=== PATIENT | male | born 1975 | race Caucasian/White ===

== ENCOUNTER → 2023-12-22 | Outpatient (CLI) | payer MEDICARE, SELFPAY ==
--- NOTE | 2023-12-22 12:23 | MRI_ITS ---
STUDY: MRI LEFT SHOULDER REASON FOR EXAM: Male, 48 years old. Pain after a fall lt shoulder TECHNIQUE: Standardized fat and water weighted pulse sequences were obtained in all 3 orthogonal planes. COMPARISON: X-ray November 23, 2023 FINDINGS: Normal supraspinatus tendon. Normal infraspinatus tendon. Normal subscapularis tendon. Normal teres minor tendon. Normal supraspinatus muscle. Normal infraspinatus muscle. Normal subscapularis muscle. Normal teres minor muscle. Normal glenohumeral articulation. Normal humeral head and visualized proximal humerus. Normal biceps labral complex. Normal intracapsular long biceps tendon. There is tear of the superior labrum adjacent to the biceps anchor, series 5 images 11 through 13. Normal capsulo- ligamentous complex. Normal rotator interval. There is mild edema at the acromioclavicular articulation. There is a Type II morphology (curved) acromion, with a neutral orientation. There is no subacromial-subdeltoid bursal fluid. Normal visualized coracohumeral and coracoacromial ligaments. Normal quadrilateral space. Normal axillary space. Normal deltoid muscle. Normal trapezius muscle. MRI/Upper Ext Joint Only(Routine) IMPRESSION: SLAP lesion with tear of the superior labrum. Edema at the acromioclavicular joint. No rotator cuff tear. Electronically Signed: Jesus Sterling MD at 14:23 EDT ,
== END | disposition home or self-care (01) ==
PROVIDERS: PCP Internal Medicine; Referring Provider Orthopaedic Surgery Sports Medicine; Visit Provider Orthopaedic Surgery Sports Medicine
DX: M25.512 Pain in left shoulder (principal)
CPT/HCPCS: 73221

== ENCOUNTER 2024-05-15 09:50 | Day surgery (SDC) | payer MEDICARE, MEDICAID, SELFPAY ==
[2024-05-15] VITALS (7 sets, daily range): BP systolic 106–130; BP diastolic 66–89; PULSE 100–104; RESP 16–20; TEMP 36.5–37.2; O2SAT 93–97; BMI 29.8
--- NOTE | 2024-05-15 10:10 | HP.PCM_ITS ---
HPI - General General Date of Admission: 05/15/24 Date of Service: 05/15/24 Chief Complaint: Dysphagia HPI Narrative CLARENCE DUONG, is a 48 M who presentsChief Complaint: GERD Details: CLARENCE DUONG, is a 48 M who presents to the office today for 48y/o male presents for initial consultation with complaints of GERD. He reports in increase in reflux symptoms with c/o odynophagia. He denies any dysphagia. He is taking pantoprazole 40mg BID. Denies any N/V, weight loss or change in bowel habits. - EGD 11/16/2017 Grade B esophagitis, suspicious for emmett - started on PPI BID and Nystatin with recommendation to repeat EGD in 3 months - do not have pathology - patient reports he did take nystatin and was on BID but then dropped ot QD and had been on QD for several years - just increased back to BID 1 month ago Colon: 7 years ago - per patient this was negative Maternal GM with colon CA - he is a smoker - denies any EtOH - denies any NSAIDS - he was only taking PPI once a day until a month ago he increased to BID - increasing dose has decreased duration of daily symptoms - spicy foods can trigger symptoms - denies any CP or SOB - denies any recent falls - now living in assisted living x1 month - H/O TBI [facility] Medical History (Updated 05/14/24 @ 10:18 by Kate Han) Wears glasses ADHD PTSD (post-traumatic stress disorder) Depression Anxiety History of steroid therapy Loss of consciousness Gastric reflux Smoker Shortness of breath on exertion Cardiology follow-up encounter History of stress test Hypertension Arthrosis of left acromioclavicular joint Superior labrum jsjacldc-oa-[id number] (SLAP) tear of left shoulder TBI (traumatic brain injury) Left shoulder pain Home Medications ?Medication ?Instructions ?Recorded ?Last Taken ?Type bupropion HCl 150 mg 24 hr tablet, 150 mg PO QDAY 10/29 08/20 Unknown History extended release clonazepam 1 mg tablet 1 mg PO TID PRN anxiety 10/29 08/20 Unknown History clonidine HCl 0.1 mg tablet 0.1 mg PO BID 11/23/23 Unk nown History cyclobenzaprine 5 mg tablet 5 mg PO BID 11/23/23 Unkno wn History hydroxyzine HCl 50 mg tablet 50 mg PO Q6H PRN anxiety 11/23/23 Unknown History mirtazapine 15 mg tablet 15 mg PO QHS 11/23/23 Unknow n History trazodone 100 mg tablet 100 mg PO QHS 11/23/23 Unkno wn History gabapentin 400 mg capsule 400 mg PO TID 03/12/24 Unkno wn History lansoprazole 30 mg capsule,delayed 30 mg PO BID #180 c aps 03/14/24 Unknown Rx release dextroamphetamine-amphetamine 10 10 mg PO BID 05/14/24 Unknown History mg tablet (Adderall) metoprolol succinate 25 mg 25 mg PO BID 05/14/24 Unkno wn History tablet,extended release 24 hr Allergy/AdvReac Type Severity Reaction Status Date / Time No Known Allergies Allergy Verified 05/14/24 10:04 Surgical History (Updated 05/14/24 @ 10:18 by Kate Han) History of esophagogastroduodenoscopy (EGD) Hx of colonoscopy Hx of Achilles tendon repair Hx of right knee surgery 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 Smoking Status: Light Smoker (<10/day) alcohol intake: never ROS Constitutional Constitutional: Denies fatigue, fever(s), poor appetite, weight gain or weight loss Gastrointestinal Gastrointestinal: Denies belching, bloating, change in bowel habits, change in stool character, chewing difficulty, coffee ground emesis, constipation, cramping, diarrhea, dyspepsia, dysphagia, early satiety, excessive flatus, fecal incontinence, heartburn, hematemesis, hematochezia, hemorrhoids, loose stools, melena, nausea, odynophagia, rectal bleeding, tenesmus, vomiting or weight changes Physical Exam Const alert, oriented x3, no apparent distress and healthy appearing General Appearance: cooperative GI normal to inspection, nondistended, normoactive bowel sounds, soft to palpation, non-tender and non-distended Percussion: normal to percussion Rectal Exam: deferred Assessment & Plan Assessment/Plan (1) Odynophagia: PLAN: Exam Const General: cooperative, healthy appearing, no acute distress and well developed Nutritional Appearance: average body habitus and well nourished Orientation: alert and oriented x3 HENMT Head: normocephalic Ears: hearing grossly normal bilaterally Mouth: moist mucous membranes Teeth and gingiva: dentition normal Eyes Conjunctivae: conjunctivae normal Sclera: sclerae normal Neck Neck: normal visual inspection, full ROM and trachea midline Resp Effort & Inspection: normal respiratory effort, able to speak in complete sentences and symmetric chest movement Neuro General: patient alert and patient oriented x3 Cranial Nerves: other (CN's grossly intact, non-focal exam) Cognition: normal cognition Speech: speech normal Gait: normal gait Extrem General: normal to inspection (no edema noted) Psych Appearance: grossly normal and well kempt Affect: normal affect Attitude: cooperative Thought Process: normal Thought Content: normal Assessment and Plan Assessment and Plan (1) Gastroesophageal reflux disease: Qualifiers: Esophagitis presence: with esophagitis Esophagitis bleeding: without hemorrhage Qualified Code(s): K21.00 - Gastro-esophageal reflux disease with esophagitis, without bleeding (2) Odynophagia: Status: Acute Medications: New lansoprazole take 30 minutes before breakfast and dinner 30 mg PO BID 180 caps 1RF Discontinued pantoprazole Discontinued Reason: Order Changed 40 mg PO BID Plan 48y/o male presents for consultation with complaints of GERD and odynophagia. EGD performed October 2017 revealed Grade B esophagitis and possible emmett; I do not have pathology for review. Notes do indicate he was treated with nystatin. He was taking PPI once daily and increased to BID one month ago with admission to assisted living. He notes some improvement in duration of daily symptoms with BID dosing. He denies any dysphagia. He is not on any steroids or immunosuppression. I have changed his PPI from pantoprazole to lansoprazole and scheduled him for an EGD. We will keep you apprised of our findings. Patient Instructions: 1. Discontinue pantoprazole 2. Start Lansoprazole 30mg BID, take 30 minutes before breakfast and dinner 3. EGD 4. Follow-up in 3 months
--- NOTE | 2024-05-15 10:55 | PCM.PRE.AN2 ---
ASA Classification* ASA Classification ASA Classification: 3 Assessment & Plan Anesthesia* Anesthesia Assessment Anesthesia Assessment: Discussed sedation and/or anesthesia options, risks, benefits, and alternatives with patient/parents/legal guardian/POA. Questions invited. The patient/parents/legal guardian/POA seems to understand and agrees to proceed with anesthesia plan. Reviewed the physical assessment, medical history, allergy history and patient home medications list prior to surgery/procedure/anesthetic and documented any changes. Performed airway and anesthesia risk assessments. Anesthesia Type Anesthesia Type: MAC History Source History Obtained from:: Patient and Chart Anesthesia Focused Assessment* Temperature: 97.7 F Pulse Rate: 100 Blood Pressure: 119/66 Respiratory Rate: 16 Pulse Ox: 97 Oxygen Delivery Method: Room Air Airway Assessment Mouth opens: >3 cm Mallampati Score: II Teeth Condition: Chipped/Broken (Chipped tooth #9.) and Missing (Missing multiple molars. Rest of the teeth are tight.) Neck Range of motion (ROM): Full ROM Focused Labs Anesthesia Preop lab: CBC WBC 17.3 k/mm3 (4.4-11.0) H 03/26/12 13:15 03/26/12 RBC 4.84 M/mm3 (4.6-6.2) 03/26/12 13:15 03/26/12 Hgb 14.7 g/dl (13.0-16.5) 03/26/12 13:15 03/26/12 Hct 42.8 % (40-54) 03/26/12 13:15 03/26/12 Plt Count 258 K/mm3 (150-450) 03/26/12 13:15 03/26/12 CHEMISTRY Potassium 3.8 mmol/L (3.5-5.1) 03/26/12 13:15 03/26/12 Sodium 141 mmol/L (136-145) 03/26/12 13:15 03/26/12 BUN 6 mg/dL (7-18) L 03/26/12 13:15 03/26/12 Creatinine 1.0 mg/dL (0.8-1.3) 03/26/12 13:15 03/26/12 Glucose 90 mg/dL (70-110) 03/26/12 13:15 03/26/12 COAG Pre-Assessment Diagnosis/Proposed Procedure Planned Operative Procedure(s): EGD Anesthesia History Anesthesia History - human resources associate: Anesthesia History - human resources associate Hx Hospitalization Yes: 03/2024 FOR COVID 05/14/24 10:10 Any Problems With Anesthesia No 05/14/24 10:10 Cholinesterase deficiency No 05/14/24 10:10 You/Your Family Experience No 05/14/24 10:10 fever (hyperthermia) with Relationship Recent Exposure to Contagious No 05/15/24 10:16 Disease Does patient have nerve No 05/14/24 10:10 stimulator Patient instructed to have device shut off --Does patient have Pacemaker No 05/15/24 10:16 or ICD? When Was Last Pacemaker Check QUESTION #4 FULL TEXT: You/Your Family Experience fever (hyperthermia) with Anesthesia Last Oral Intake Last Oral intake: Last Oral Intake NPO since 20:00 05/15/24 10:16 Meds taken in AM with sips of No 05/15/24 10:16 water? Meds patient instructed to take am of surgery Any additional information?: Yes NPO since: 08:00 (Patient water at 8 AM) PONV PONV - human resources associate: PONV - human resources associate Female No 05/14/24 10:10 HX of Motion Sickness No 05/14/24 10:10 HX of N/V After Surgery No 05/14/24 10:10 Non-Smoker No 05/14/24 10:10 Duration of Surgery greater No 05/14/24 10:10 than 60 minutes Number of Risk Factors PONV Score Height & Weight Height & Weight: Anesthesia: Height & Weight Height 5 ft 11 in 05/15/24 10:16 Weight: 97 kg 05/15/24 10:16 Body Mass Index (BMI) 29.8 05/15/24 10:16 Respiratory Assessment Respiratory Assessment - human resources associate: Respiratory Tract Infection Hx - human resources associate Hx Respiratory Tract Infection No 05/14/24 10:10 STOP Sleep Apnea STOP Sleep Apnea - human resources associate: STOP Sleep Apnea - human resources associate Hx Hypertension Yes: CONTROLLED WITH MED 05/14/24 10:10 Hx Sleep Apnea No 05/14/24 10:10 CPAP BIPAP Do you snore loudly (louder No 05/14/24 10:10 than talking or can be heard Do you often feel tired/ No 05/14/24 10:10 fatigued/ sleepy during daytime? Has anyone observed you stop No 05/14/24 10:10 breathing during sleep? STOP Results Negative 05/14/24 10:10 QUESTION #5 FULL TEXT : Do you snore loudly (louder than talking or can be heard through closed doors)? 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 - human resources associate: Tobacco Use History - human resources associate Tobacco Use Smoking Status Light Smoker (<10/day) 05/14/24 10:10 Hx Tobacco Use Yes 05/14/24 10:10 Years Smoking Packs Smoked per Day Smoking Cessation Date was within the last 15 years Hx Smoking Cessation Date Hx Smoking Cessation Counseling Any additional information?: Yes Smoking Status: Current every day smoker (Patient did not smoke today.) Hematologic Medial History Hematologic Hx - human resources associate: Hematologic Medical Hx - repeater chief Hx of Blood Transfusion No 05/14/24 10:10 Hx of Transfusion in last 3 No 05/14/24 10:10 Months Date of Last Transfusion (if within last 3 months) Ever experience any problems No 05/14/24 10:10 with transfusion(s)? Specify any problems Hx of Preganancy in last 3 N/A 05/14/24 10:10 Months Nurse Filling Out Transfusion DSCHRIBER 05/14/24 10:10 & Questions: Date: 05/14/24 05/14/24 10:10 Time: 10:12 05/14/24 10:10 Patient unable to answer at this time (ie. confused, unrespo /Reproduction History /Reproductive History - human resources associate: /Reproductive Hx- human resources associate Hx Now No 05/14/24 10:10 Gestational Age (in weeks): EDC: Hx Hx Para Hx Section SAB No 05/14/24 10:10 PFSH Medical History Wears glasses ADHD PTSD (post-traumatic stress disorder) Depression Anxiety History of steroid therapy Loss of consciousness Gastric reflux Smoker Shortness of breath on exertion Cardiology follow-up encounter History of stress test Hypertension Arthrosis of left acromioclavicular joint Superior labrum btzagpla-ja-iybuvmtlm (SLAP) tear of left shoulder TBI (traumatic brain injury) Left shoulder pain Home Medications ?Medication ?Instructions ?Recorded ?Last Taken ?Type bupropion HCl 150 mg 24 hr tablet, 150 mg PO QDAY 11/23/23 05/14/24 History extended release clonazepam 1 mg tablet 1 mg PO TID PRN anxiety 11/23/23 05/14/24 History clonidine HCl 0.1 mg tablet 0.1 mg PO BID 11/23/23 05/14/24 History cyclobenzaprine 5 mg tablet 5 mg PO BID 11/23/23 05/14/24 History hydroxyzine HCl 50 mg tablet 50 mg PO Q6H PRN anxiety 11/23/23 05/14/24 History mirtazapine 15 mg tablet 15 mg PO QHS 11/23/23 05/14/24 History trazodone 100 mg tablet 100 mg PO QHS 11/23/23 05/14/24 History gabapentin 400 mg capsule 400 mg PO TID 03/12/24 05/14/24 History lansoprazole 30 mg capsule,delayed 30 mg PO BID #180 caps 03/14/24 05/14/24 Rx release dextroamphetamine-amphetamine 10 10 mg PO BID 05/14/24 05/14/24 History mg tablet (Adderall) metoprolol succinate 25 mg 25 mg PO BID 05/14/24 05/14/24 History tablet,extended release 24 hr Allergy/AdvReac Type Severity Reaction Status Date / Time No Known Allergies Allergy Verified 05/15/24 10:14 Surgical History History of esophagogastroduodenoscopy (EGD) Hx of colonoscopy Hx of Achilles tendon repair Hx of right knee surgery Social History household 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
--- NOTE | 2024-05-15 11:15 | EGD_PTH ---
PATIENT: CLARENCE DUONG LOC: EN U#:[id number] AGE/SX: 48/M ROOM: RE05/15/[address]: Dr. Andre Navarro DO : 1975 BED: DIS: 05/15/2024 SPEC #: [id number] RECD: 05/15/24 13:14 STATUS: GAVIOTA SAÚL #: [id number] DAVID: 05/15/24 11:[address]: Andre Navarro DEPT: SURGICAL PATHOLOGY RECD BY: Julian Lnua ENTERED: 05/15/24 13:14 SP TYPE: EGD BIOPSY OT DR: Lis Primary Care Phys Tissues: A - Esophagus, NOS Procedures: Special Stain Group I Surgery Specimen Level IV GMS Stain (control) Alcian Blue/PAS (control) HEADER OPERATION: EGD with biopsy and dilation PRE-OP DIAGNOSIS: Odynophagia TISSUE SUBMITTED: A- Distal esophagus biopsy MICROSCOPIC DIAGNOSIS Distal esophagus, biopsy: Squamous and glandular mucosa without dysplasiaExudate is presentA GMS stain for fungal organisms with appropriate controls is negativeAn Alcian blue/PAS stain is negative for goblet cellsRusty Merrill MD, 05/26/24 MICROSCOPIC DESCRIPTION Slides are reviewed. GROSS DESCRIPTION A. Received in fixative is one container labeled with the patient's name and designated Distal esophagus biopsy. The specimen consists of two irregular fragments of light reagan soft tissue that in aggregate measure 1 x 0.2 x 0.2 cm. The specimen is totally submitted in one cassette. MS/mr 05/15/2024 CPT:55236,07068,74025 TC:4
--- NOTE | 2024-05-15 11:42 | OP.EGD_ITS ---
Patient Name: Rohit Lafleur Procedure Date: 05/15/2024 11:18 AM Date of : 1975 Age: 48 Procedure: Upper GI endoscopy Indications: Dysphagia, Odynophagia Providers: Andre Navarro DO Medicines: Monitored Anesthesia Care Patient Profile: This is a 48 year old male. Refer to note in patient chart for documentation of history and physical. Patient has symptoms of chronic dysphagia. Complications: No immediate complications. Procedure: Pre-Anesthesia Assessment: - Prior to the procedure, a History and Physical was performed, and patient medications and allergies were reviewed. The patient is competent. The risks and benefits of the procedure and the sedation options and risks were discussed with the patient. All questions were answered and informed consent was obtained. Patient identification and proposed procedure were verified by the physician in the pre-procedure area. Mental Status Examination: alert and oriented. Airway Examination: normal oropharyngeal airway and neck mobility. Respiratory Examination: clear to auscultation. CV Examination: normal. Prophylactic Antibiotics: The patient does not require prophylactic antibiotics. Prior Anticoagulants: The patient has taken no anticoagulant or antiplatelet agents. ASA Grade Assessment: II - A patient with mild systemic disease. After reviewing the risks and benefits, the patient was deemed in satisfactory condition to undergo the procedure. The anesthesia plan was to use monitored anesthesia care (MAC). Immediately prior to administration of medications, the patient was re-assessed for adequacy to receive sedatives. The heart rate, respiratory rate, oxygen saturations, blood pressure, adequacy of pulmonary ventilation, and response to care were monitored throughout the procedure. The physical status of the patient was re-assessed after the procedure. After obtaining informed consent, the endoscope was passed under direct vision. Throughout the procedure, the patient's blood pressure, pulse, and oxygen saturations were monitored continuously. The gastroscope was introduced through the mouth, and advanced to the second part of duodenum. The upper GI endoscopy was accomplished with ease. The patient tolerated the procedure well. Scope In: Scope Out: 11:35:08 AM Findings: The adenoids are large, the tonsils are large and the tonsils are cryptic. LA Grade C (one or more mucosal breaks continuous between tops of 2 or more mucosal folds, less than 75% circumference) esophagitis with no bleeding was found 37 to 40 cm from the incisors. Biopsies were taken with a cold forceps for histology. Verification of patient identification for the specimen was done. Estimated blood loss was minimal. A moderate Schatzki ring was found at the gastroesophageal junction. A guidewire was placed and the scope was withdrawn. Dilation was performed with a Savary dilator with no resistance at 60 Fr. The dilation site was examined and showed moderate mucosal disruption. Estimated blood loss was minimal. A medium-sized hiatal hernia was present. No gross lesions were noted in the entire examined stomach. No gross lesions were noted in the first portion of the duodenum. Impression: - The adenoids are large, the tonsils are large and the tonsils are cryptic. - LA Grade C reflux esophagitis with no bleeding. Biopsied. - Moderate Schatzki ring. Dilated. - Medium-sized hiatal hernia. - No gross lesions in the entire stomach. - No gross lesions in the first portion of the duodenum. Recommendation: - Discharge patient to home. - Resume previous diet. - Continue present medications. - Await pathology results. - Repeat upper endoscopy for surveillance based on pathology results. Procedure Code(s): --- Professional --- 10257, Esophagogastroduodenoscopy, flexible, transoral; with insertion of guide wire followed by passage of dilator(s) through esophagus over guide wire 29452, 59,51, Esophagogastroduodenoscopy, flexible, transoral; with biopsy, single or multiple CPT copyright 2021 [employer]. All rights reserved. The codes documented in this report are preliminary and upon sign hanger review may be revised to meet current compliance requirements. Andre Navarro DO 05/15/2024 11:41:26 AM This report has been signed electronically. Number of Addenda: 0 Note Initiated On: 05/15/2024 11:18 AM
--- NOTE | 2024-05-15 11:42 | OP.CCLET_ITS ---
05/15/2024 Khai White [address] [place] [address] Re : Upper GI endoscopy procedure for Rohit Miquel Dear Dr. White This procedure was performed on Wednesday, May 15, 2024. My impressions and recommendations are as follows: Impressions : - The adenoids are large, the tonsils are large and the tonsils are cryptic. - LA Grade C reflux esophagitis with no bleeding. Biopsied. - Moderate Schatzki ring. Dilated. - Medium-sized hiatal hernia. - No gross lesions in the entire stomach. - No gross lesions in the first portion of the duodenum. Recommendations : - Discharge patient to home. - Resume previous diet. - Continue present medications. - Await pathology results. - Repeat upper endoscopy for surveillance based on pathology results. My findings are described in the full procedure note, which is enclosed. If I can be of further assistance, please feel free to contact me at . Sincerely, Andre Navarro, 05/15/2024 11:41:26 AM This report has been signed electronically.
--- NOTE | 2024-05-15 11:46 | PCM.POST.ANE ---
Anesthesia: Postop Eval I Current Vital Signs Temperature: 98.9 F Pulse Rate: 101 Blood Pressure: 130/80 Respiratory Rate: 20 Pulse Ox: 95 Oxygen Delivery Method: Room Air Assessment Airway patent: Yes Spontaneous unlabored respirations: Yes Mental status: Awake and Calm nausea: No Vomiting: No Anesthesia Complication: No Fluid Hydration Crystalloid volume administer (ml): 30 Total IV fluid infused: 30 Progress Note Anesthesia document: Postop Eval 1 completed: Yes
--- NOTE | 2024-05-15 14:15 | POSTOPAN2_ITS ---
Anesthesia Postop Eval I Sum Postop Eval Completion status Anesthesia document: Postop Eval 1 completed: Yes Anesthesia Postop Eval I Summary Anesthesia Postop Eval I Summary: Anesthesia Postop Eval I: Assessment Summary Airway patent Yes 05/15/24 11:46 TECHNICAL SUPPORT REPRESENTATIVE.[email or web address] Spontaneous unlabored Yes 05/15/24 11:46 TECHNICAL SUPPORT REPRESENTATIVE.[email or web address] respirations Mental status Awake,Calm 05/15/24 11:46 TECHNICAL SUPPORT REPRESENTATIVE.[email or web address] nausea No 05/15/24 11:46 TECHNICAL SUPPORT REPRESENTATIVE.[email or web address] Vomiting No 05/15/24 11:46 TECHNICAL SUPPORT REPRESENTATIVE.[email or web address] Anesthesia Postop Eval I: Fluid Summary Crystalloid volume administer 30 05/15/24 11:46 TECHNICAL SUPPORT REPRESENTATIVE.[email or web address] (ml) Colloids volume administered ( ml) Blood Product volume administered (ml) Total IV fluid infused 30 05/15/24 11:46 TECHNICAL SUPPORT REPRESENTATIVE.[email or web address] Anesthesia Postop Eval I: Summary Notes Anesthesia Complication No 05/15/24 11:46 TECHNICAL SUPPORT REPRESENTATIVE.[email or web address] Anesthesia Complication Comment: Post-operative progress note Anesthesia: Postop Eval II Evaluation Mental status: Awake Pain Level: 0 nausea: No Vomiting: No
--- NOTE | 2024-05-15 14:15 | PCM.POSTANE2 ---
Anesthesia Postop Eval I Sum Postop Eval Completion status Anesthesia document: Postop Eval 1 completed: Yes Anesthesia Postop Eval I Summary Anesthesia Postop Eval I Summary: Anesthesia Postop Eval I: Assessment Summary Airway patent Yes 05/15/24 11:46 [email or web address] Spontaneous unlabored Yes 05/15/24 11:46 NEGATIVE [email or web address] respirations Mental status Awake,Calm 05/15/24 11:46 NEGATIVE [email or web address] nausea No 05/15/24 11:46 NEGATIVE [email or web address] Vomiting No 05/15/24 11:46 [email or web address] Anesthesia Postop Eval I: Fluid Summary Crystalloid volume administer 30 05/15/24 11:46 [email or web address] (ml) Colloids volume administered ( ml) Blood Product volume administered (ml) Total IV fluid infused 30 05/15/24 11:46 [email or web address] Anesthesia Postop Eval I: Summary Notes Anesthesia Complication No 05/15/24 11:46 [email or web address] Anesthesia Complication Comment: Post-operative progress note Anesthesia: Postop Eval II Evaluation Mental status: Awake Pain Level: 0 nausea: No Vomiting: No
== END 2024-05-15 12:27 | disposition home or self-care (01) ==
LOC: EN 09:53 → AC 09:53
PROVIDERS: Visit Provider Internal Medicine Gastroenterology
PROC: 0DJ08ZZ Inspection of Upper Intestinal Tract, Via Natural or Artificial Opening Endoscopic (ICD-10-PCS; CPT 43235; principal; 2024-05-15 11:10)
DX: R13.10 Dysphagia, unspecified (principal); K21.00 Gastro-esophageal reflux disease with esophagitis, without bleeding; K44.9 Diaphragmatic hernia without obstruction or gangrene; F17.200 Nicotine dependence, unspecified, uncomplicated; I10 Essential (primary) hypertension; Z80.0 Family history of malignant neoplasm of digestive organs; F41.9 Anxiety disorder, unspecified; F32.A Depression, unspecified; F90.9 Attention-deficit hyperactivity disorder, unspecified type; K22.2 Esophageal obstruction; J35.3 Hypertrophy of tonsils with hypertrophy of adenoids
CPT/HCPCS: 43239; 43248; 88305; A4216; C1769; J2405

== ENCOUNTER 2024-06-14 13:20 | Emergency (ER) | payer MEDICARE, MEDICAID, SELFPAY ==
[2024-06-14 13:30] VITALS: BP 120/91; PULSE 121; RESP 20; TEMP 36.7; O2SAT 92; BMI 30.9
--- NOTE | 2024-06-14 14:10 | ED.VIS.BACK ---
HPI History of Present Illness Chief Complaint: Back Informant: patient Onset/Context/Timing Onset: Days Context: Gradual Onset Timing: Continuous Quality: Sharp Current Severity: Severe Maximum Severity: Severe Worsened by: improves with Movement Relieved by: Nothing Associated Symptoms Associated Symptoms: Radiation to Right Leg; Negative for Numbness, Tingling, Radiation to Left Leg, Fever, Abdominal Pain, Dysuria, Unable to Ambulate, Unable to Transfer, Urinary Retention, Urinary Incontinence, Constipation or Fecal Incontinence Narrative Narrative: 48-year-old male history of traumatic brain injury. No prior back history of back surgery. Patient stated for last 3 days he has had increasing lower back pain. No prior back history. No prior back surgery. Denies any fall injury or trauma. He did carry a case of water the other day. Denies any fever. No bowel or bladder incontinence. He went to see the [facility] ER this morning. There was treated with IM Toradol, IM morphine and a muscle relaxant. He states the pain is worse to the point now he is unable to walk. Denies bowel or bladder incontinence or retention. No fever. No abdominal pain. Prior similar symptoms: No Recent Illness/Hospitalization: No PFSH [facility] Medical History Wears glasses ADHD PTSD (post-traumatic stress disorder) Depression Anxiety History of steroid therapy Loss of consciousness Gastric reflux Smoker Shortness of breath on exertion Cardiology follow-up encounter History of stress test Hypertension Arthrosis of left acromioclavicular joint Superior labrum bylqaloa-ma-cvfyeempu (SLAP) tear of left shoulder TBI (traumatic brain injury) Left shoulder pain Home Medications ?Medication ?Instructions ?Recorded ?Last Taken ?Type bupropion HCl 150 mg 24 hr tablet, 150 mg PO QDAY 11/23/23 05/14/24 History extended release clonazepam 1 mg tablet 1 mg PO TID PRN anxiety 11/23/23 05/14/24 History clonidine HCl 0.1 mg tablet 0.1 mg PO BID 11/23/23 05/14/24 History cyclobenzaprine 5 mg tablet 5 mg PO BID 11/23/23 05/14/24 History hydroxyzine HCl 50 mg tablet 50 mg PO Q6H PRN anxiety 11/23/23 05/14/24 History mirtazapine 15 mg tablet 15 mg PO QHS 11/23/23 05/14/24 History trazodone 100 mg tablet 100 mg PO QHS 11/23/23 05/14/24 History gabapentin 400 mg capsule 400 mg PO TID 03/12/24 05/14/24 History dextroamphetamine-amphetamine 10 10 mg PO BID 05/14/24 05/14/24 History mg tablet (Adderall) metoprolol succinate 25 mg 25 mg PO BID 05/14/24 05/14/24 History tablet,extended release 24 hr vonoprazan 20 mg tablet (Voquezna) 20 mg PO QDAY erosive esophagitis 05/29/24 Unknown Rx #30 tabs Allergy/AdvReac Type Severity Reaction Status Date / Time No Known Allergies Allergy Verified 06/14/24 13:23 Surgical History History of esophagogastroduodenoscopy (EGD) Hx of colonoscopy Hx of Achilles tendon repair Hx of right knee surgery Social History 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 No recent illness. No fever or chills. No bowel or bladder incontinence or retention. No dysuria. Constitutional Constitutional ED: Denies chills or fever(s) Eyes Eyes: Denies blurry vision ENT ENT ED: Denies ear pain Cardiovascular Cardiovascular: Denies chest pain or palpitations Respiratory/Chest Respiratory/Chest: Denies dyspnea or dyspnea on exertion Gastrointestinal Gastrointestinal: Denies abdominal pain Genitourinary Genitourinary ED: Denies dysuria or hematuria Musculoskeletal Musculoskeletal: Denies arthralgias or back pain Integumentary Denies abscess or Abrasions Neurologic Neurologic: Denies headache(s) Psychiatric Psychiatric: Denies anxiety or depression Endocrine Endocrinology: Denies cold intolerance, heat intolerance, polydipsia or polyphagia Allergic/Immunologic Allergic/Immunologic ED: Denies mouth swelling, tongue swelling or urticaria EXAM Physical Exam Narrative Exam Narrative: 48-year-old male lying in bed complain of back pain. Vital signs are stable and he is tachycardic at 120. Peers to be in obvious pain. H EENT exam pupils round reactive light. Active motion intact. Neck nontender. No lymphadenopathy. Lungs clear to auscultation bilaterally. Heart tachycardic 120 no murmur. Chest wall ribs nontender. Abdomen soft nontender. Patient moving all 4 extremities. Extremities are neurovascularly intact. 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 He has dorsi plantarflexion. He has normal touch sensation in both upper and lower extremities. There is no cauda equina. There is no saddle anesthesia. He has normal medial thigh sensation. He has increasing back pain with lifting either leg. Back he has some mild reproducible pain over the lower back. There is no redness or warmth. No bruising or signs of trauma. No discoloration. Neurologically is awake and alert. He is answering questions following commands. Again no cauda equina. No focal motor or sensory deficits. Const Vital Signs: 06/14/24 13:30 Temperature 98.1 F Temperature Source Oral Pulse Rate 121 H Respiratory Rate 20 H Blood Pressure 120/91 H Blood Pressure Mean 100 Pulse Ox 92 Oxygen Delivery Method Room Air Positive well nourished and well developed; Negative for cachectic, contractures or unkempt General Appearance ED: well developed; Negative for unkempt, cachectic, contractures, NAD or pallor Nutritional Appearance: Negative for cachectic HEENT Reports moist mucous membranes Negative for trauma or tenderness Eyes PERRL and EOMs intact bilaterally Neck no lymphadenopathy, supple and no JVD General: Negative for tenderness Chest Wall Chest: Negative for other Resp normal respiratory effort and clear to auscultation bilaterally Effort and Inspection: Negative for pain with movement Auscultation: Negative for rales, rhonchi, wheezes or diminished lung sounds Cardio regular rate, regular rhythm, S1 normal heart sound, S2 normal heart sound and no murmurs Rate: Negative for bradycardia or tachycardic GI normal to inspection, nondistended, normoactive bowel sounds, soft to palpation, non-tender, non-distended and no masses Inspection: Negative for abdominal distention Palpation: Negative for tender, guarding, pulsatile mass or rebound tenderness present Back/Spine normal to inspection; Negative for no thoracic nor lumbar tenderness Back/Spine Narrative: Paralumbar tenderness. Cervical Spine: Negative for cervical spine tenderness Extremity normal to inspection and no clubbing, cyanosis or edema Extremity Narrative: Both upper and lower extremities neurovascular intact. No cauda equina. There is a plantarflexion intact. Normal medial thigh sensation. No saddle anesthesia. General Extremety ED: Negative for edema, tenderness or other findings General Extremity: Negative for edema or other findings Neuro oriented x3 and no sensory deficits noted Sensorium / Orientation: alert; Negative for confused or lethargic Motor Exam: strength 5/5 throughout Psych mental status grossly normal Appearance: Negative for unkempt Attitude: No agitated Mood & Affect: Negative for depressed, sad or tearful Skin no rashes or lesions noted and no wounds General Skin Exam: Negative for jaundice or pallor Lesions: No lesion noted Rashes: No rashes noted Trauma: Negative for abrasion or puncture Wounds: Negative for wounds noted MDM MDM MDM Narrative Medical decision making narrative: Patient with low back pain for last 3 days. To the point where the pain now is he was having trouble walking today. He was seen in outside ER and had x-rays which showed chronic changes. He has never had an MRI of his back. He will be given IV Dilaudid and Toradol and reassessed. History & Record Review Discussion w/independent historian: Patient Additional record(s) reviewed:: Prior inpatient record, Prior outpatient record, Prior ED visit and Prior labs Discharge Plan Triage Chief Complaint: Back ED Provider: Giovanni Carrera Dx/Rx/DC Orders Prescriptions: No Action trazodone 100 mg tablet 100 mg PO QHS cyclobenzaprine 5 mg tablet 5 mg PO BID bupropion HCl 150 mg tablet extended release 24 hr 150 mg PO QDAY mirtazapine 15 mg tablet 15 mg PO QHS hydroxyzine HCl 50 mg tablet 50 mg PO Q6H PRN (Reason: anxiety) clonidine HCl 0.1 mg tablet 0.1 mg PO BID clonazepam 1 mg tablet 1 mg PO TID PRN (Reason: anxiety) gabapentin 400 mg capsule 400 mg PO TID Voquezna 20 mg tablet 20 mg PO QDAY Qty: 30 2RF dextroamphetamine-amphetamine [Adderall] 10 mg tablet 10 mg PO BID Rx Instructions: administer doses at least 4-6 hours apart metoprolol succinate 25 mg tablet extended release 24 hr 25 mg PO BID Primary Care Provider: Josy Patton Referrals: Josy Patton MD [Primary Care Provider] - Print Language: Algerian
--- NOTE | 2024-06-14 14:12 | MRI_ITS ---
PROCEDURE: SPINE LUMBAR (ROUTINE) 06/14/2024 REASON FOR EXAM: ATRAUMATIC LOWER BACK PAIN TECHNIQUE: Multiplanar and multisequence images were obtained without IV contrast administration. FINDINGS: Vertebrae: Unremarkable. Alignment: Bilateral pars defects of the L5 vertebra consistent with L5 spondylolysis. 8 mm of anterolisthesis of L5 on S1 consistent with grade 1 spondylolisthesis. Conus Medullaris: L1. L1-2: Unremarkable L2-3: Unremarkable L3-4: Mild broad disc protrusion produces minimal spinal stenosis and minimal bilateral neural foraminal stenosis. L4-5: Unremarkable L5-S1: Bilateral pars defects of the L5 vertebra consistent with L5 spondylolysis. 8 mm of anterolisthesis of L5 on S1 consistent with grade 1 spondylolisthesis. Mild broad disc protrusion produces mild spinal stenosis and moderate bilateral neural foraminal stenosis with abutment of the exiting L5 nerve roots bilaterally. Sacrum: Unremarkable. MRI/Spine Lumbar (Routine) IMPRESSION: L5 spondylolysis with grade 1 spondylolisthesis of L5 on S1 with mild spinal st enosis and moderate bilateral neural foraminal stenosis with abutment of the L5 nerve roots bilaterally. Reading Location: [id number]
[2024-06-14] MEDS: HYDROmorphone 1 MG/ML Syringe IV (14:20)
[2024-06-14] MEDS: Ketorolac 15 MG/ML Vial IV (14:20)
[2024-06-14 17:20] VITALS: BP 122/92; PULSE 113; RESP 18; O2SAT 92
[2024-06-14] MEDS: Morphine 4 MG/ML Syringe IV (17:20)
[2024-06-14] MEDS: diazePAM 5 MG Tablet PO (17:20)
[2024-06-14 17:26] VITALS: BP 122/92; O2SAT 92
[2024-06-14 18:00] VITALS: BP 122/92; O2SAT 90
== END 2024-06-14 19:51 | disposition home or self-care (01) ==
PROVIDERS: Emergency Provider Emergency Medicine; PCP Internal Medicine; Visit Provider Emergency Medicine
DX: S39.012A Strain of muscle, fascia and tendon of lower back, initial encounter (principal); M43.17 Spondylolisthesis, lumbosacral region; M48.061 Spinal stenosis, lumbar region without neurogenic claudication; M62.830 Muscle spasm of back; X58.XXXA Exposure to other specified factors, initial encounter; F17.210 Nicotine dependence, cigarettes, uncomplicated; Z87.820 Personal history of traumatic brain injury
CPT/HCPCS: 72148; 96374; 96375; 99284; A4216

== ENCOUNTER 2024-10-11 08:00 | Day surgery (SDC) | payer MEDICARE, MEDICAID, SELFPAY ==
[2024-10-11] VITALS (7 sets, daily range): BP systolic 107–135; BP diastolic 74–92; PULSE 93–108; RESP 12–18; TEMP 36.5–36.6; O2SAT 91–98; BMI 29.6
--- NOTE | 2024-10-11 08:05 | PCM.HP.STD ---
HPI - General General Date of Admission: 10/11/24 Date of Service: 10/11/24 Chief Complaint: GERD HPI Narrative CLARENCE DUONG, is a 49 M who presents with the Chief Complaint: GERD OV 03/14/2024 48y/o male presents for consultation with complaints of GERD and odynophagia. EGD performed October 2017 revealed Grade B esophagitis and possible emmett; I do not have pathology for review. Notes do indicate he was treated with nystatin. He was taking PPI once daily and increased to BID one month ago with admission to assisted living. He notes some improvement in duration of daily symptoms with BID dosing. He denies any dysphagia. He is not on any steroids or immunosuppression. I have changed his PPI from pantoprazole to lansoprazole and scheduled him for an EGD. We will keep you apprised of our findings. Patient Instructions: 1. Discontinue pantoprazole 2. Start Lansoprazole 30mg BID, take 30 minutes before breakfast and dinner 3. EGD 4. Follow-up in 3 months EGD 05/15/2024 -negative Duran's, negative fungal stain - The adenoids are large, the tonsils are large and the tonsils are cryptic. - LA Grade C reflux esophagitis with no bleeding. Biopsied. - Moderate Schatzki ring. Dilated. - Medium-sized hiatal hernia. - No gross lesions in the entire stomach. - No gross lesions in the first portion of the duodenum. - lansoprazole 30mg BID - has not improved his symptoms - c/o reflux burp and it heller - c/o epigastric sternal pain - worse with eating - denies any N/V - denies any coughing with swallowing - denies any choking - denies any dysphagia - he has never seen ENT in the past - denies any pain in throat - denies any halitosis [facility] Medical History Former smoker DDD (degenerative disc disease), lumbar Wears glasses ADHD PTSD (post-traumatic stress disorder) Depression Anxiety History of steroid therapy Loss of consciousness Gastric reflux Shortness of breath on exertion Cardiology follow-up encounter History of stress test Hypertension Arthrosis of left acromioclavicular joint Superior labrum zlzhaviy-wt-hczvkwokp (SLAP) tear of left shoulder TBI (traumatic brain injury) Left shoulder pain Home Medications ?Medication ?Instructions ?Recorded ?Last Taken ?Type bupropion HCl 150 mg 24 hr tablet, 150 mg PO QDAY 11/23/23 05/14/24 History extended release clonazepam 1 mg tablet 1 mg PO TID PRN anxiety 11/23/23 05/14/24 History clonidine HCl 0.1 mg tablet 0.1 mg PO BID 11/23/23 05/14/24 History hydroxyzine HCl 50 mg tablet 50 mg PO Q6H PRN anxiety 11/23/23 05/14/24 History mirtazapine 15 mg tablet 15 mg PO QHS 11/23/23 05/14/24 History trazodone 100 mg tablet 100 mg PO QHS 11/23/23 05/14/24 History gabapentin 400 mg capsule 400 mg PO TID 03/12/24 05/14/24 History dextroamphetamine-amphetamine 10 10 mg PO BID 05/14/24 05/14/24 History mg tablet (Adderall) metoprolol succinate 25 mg 25 mg PO BID 05/14/24 05/14/24 History tablet,extended release 24 hr vonoprazan 20 mg tablet (Voquezna) 20 mg PO QDAY erosive esophagitis 05/29/24 Unknown Rx #30 tabs hydrocodone-acetaminophen 5-325mg 1 tab PO Q6H PRN PRN Pain 3 days 06/14/24 Unknown Rx 5mg-325mg #12 TABLETS Allergy/AdvReac Type Severity Reaction Status Date / Time No Known Allergies Allergy Verified 10/10/24 12:31 Surgical History History of esophagogastroduodenoscopy (EGD) Hx of colonoscopy Hx of Achilles tendon repair Hx of right knee surgery 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 Smoking Status: Former smoker alcohol intake: never ROS Constitutional Constitutional: Denies fatigue, fever(s), poor appetite, weight gain or weight loss Gastrointestinal Gastrointestinal: Denies belching, bloating, change in bowel habits, change in stool character, chewing difficulty, coffee ground emesis, constipation, cramping, diarrhea, dyspepsia, dysphagia, early satiety, excessive flatus, fecal incontinence, heartburn, hematemesis, hematochezia, hemorrhoids, loose stools, melena, nausea, odynophagia, rectal bleeding, tenesmus, vomiting or weight changes Physical Exam Const alert, oriented x3, no apparent distress and healthy appearing General Appearance: cooperative GI normal to inspection, nondistended, normoactive bowel sounds, soft to palpation, non-tender and non-distended Percussion: normal to percussion Rectal Exam: deferred Assessment & Plan Assessment/Plan (1) Esophagitis determined by biopsy: (2) Odynophagia: PLAN: Assessment and Plan Assessment and Plan (1) Enlarged tonsils and adenoids: Status: Acute (2) Esophagitis determined by biopsy: Status: Acute (3) Odynophagia: Status: Acute Orders: Referrals Ears, Nose and Throat J35.3 - Hypertrophy of tonsils with hypertrophy of adenoids Medications: New vonoprazan (Voquezna) 20 mg PO QDAY 30 tabs 2RF erosive esophagitis Discontinued lansoprazole take 30 minutes before breakfast and dinner Discontinued Reason: Order Changed 30 mg PO BID 180 caps 1RF Plan 48-year-old male presents for follow-up post procedure. EGD was performed 05/15/2024 for complaints of dysphagia and odynophagia. This exam revealed grade C reflux esophagitis, medium hiatal hernia, moderate Schatzki's ring (dilated). Esophageal biopsies are negative for Duran's. ACG guidelines recommend a repeat EGD after 8 to 12 weeks of PPI therapy to ensure healing of esophagitis and exclude the presence of Duran's esophagus. With recurrent esophagitis despite PPI therapy and continued symptoms, I recommend treatment with Voquezna. Note: [employer] speech recognition cmo software was used to create portions of this document. Sound-alike and misspelled words, as well as other cmo errors may be contained in the documentation. Patient Instructions: Discontinue Lansoprazole Start Voquezna 20mg once daily in the morning - samples provided and RX sent to [facility] EGD in 12 weeks Smoking cessation recommended - https://www.cdc.gov/tobacco/about/how-to-quit.html
--- NOTE | 2024-10-11 08:16 | PCM.PRE.AN2 ---
ASA Classification* ASA Classification ASA Classification: 3 Assessment & Plan Anesthesia* Anesthesia Assessment Anesthesia Assessment: Discussed sedation and/or anesthesia options, risks, benefits, and alternatives with patient/parents/legal guardian/POA. Questions invited. The patient/parents/legal guardian/POA seems to understand and agrees to proceed with anesthesia plan. Reviewed the physical assessment, medical history, allergy history and patient home medications list prior to surgery/procedure/anesthetic and documented any changes. Performed airway and anesthesia risk assessments. Anesthesia Type Anesthesia Type: MAC Anesthesia Focused Assessment* Oxygen Delivery Method: Room Air Airway Assessment Mouth opens: 2 cm Mallampati Score: IV Teeth Condition: Intact Neck Range of motion (ROM): Full ROM Labs Anesthesia Preop lab: CBC WBC 17.3 k/mm3 (4.4-11.0) H 03/26/12 13:15 03/26/12 RBC 4.84 M/mm3 (4.6-6.2) 03/26/12 13:15 03/26/12 Hgb 14.7 g/dl (13.0-16.5) 03/26/12 13:15 03/26/12 Hct 42.8 % (40-54) 03/26/12 13:15 03/26/12 Plt Count 258 K/mm3 (150-450) 03/26/12 13:15 03/26/12 CHEMISTRY Potassium 3.8 mmol/L (3.5-5.1) 03/26/12 13:15 03/26/12 Sodium 141 mmol/L (136-145) 03/26/12 13:15 03/26/12 BUN 6 mg/dL (7-18) L 03/26/12 13:15 03/26/12 Creatinine 1.0 mg/dL (0.8-1.3) 03/26/12 13:15 03/26/12 Glucose 90 mg/dL (70-110) 03/26/12 13:15 03/26/12 COAG Pre-Assessment Diagnosis/Proposed Procedure Planned Operative Procedure(s): EGD Anesthesia History 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 When Was Last Pacemaker Check QUESTION #4 FULL TEXT: You/Your Family Experience fever (hyperthermia) with Anesthesia Last Oral Intake Last Oral intake: Last Oral Intake NPO since Meds taken in AM with sips of water? 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 Female No 10/10/24 12:34 HX of Motion Sickness No 10/10/24 12:34 HX of N/V After Surgery No 10/10/24 12:34 Non-Smoker Yes 10/10/24 12:34 Duration of Surgery greater No 10/10/24 12:34 than 60 minutes Number of Risk Factors 1 10/10/24 12:34 PONV Score Low Risk 10/10/24 12:34 Height & Weight Height & Weight: Anesthesia: Height & Weight Height 5 ft 11 in 06/21/24 14:58 Respiratory Assessment Respiratory Assessment - windmill technician: Respiratory Tract Infection Hx - windmill technician Hx Respiratory Tract Infection No 10/10/24 12:34 STOP Sleep Apnea STOP Sleep Apnea - windmill technician: STOP Sleep Apnea - windmill technician Hx Hypertension Yes: CONTROLLED WITH MED 10/10/24 12:34 Hx Sleep Apnea No 10/10/24 12:34 CPAP BIPAP Do you snore loudly (louder No 10/10/24 12:34 than talking or can be heard Do you often feel tired/ Yes 10/10/24 12:34 fatigued/ sleepy during daytime? Has anyone observed you stop No 10/10/24 12:34 breathing during sleep? STOP Results Positive 10/10/24 12:34 QUESTION #5 FULL TEXT : Do you snore loudly (louder than talking or can be heard through closed doors)? 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 Specify any problems Hx of Preganancy in last 3 N/A 10/10/24 12:34 Months Nurse Filling Out Transfusion DSCHRIBER 10/10/24 12:34 & Questions: Date: 10/10/24 10/10/24 12:34 Time: 12:35 10/10/24 12:34 Patient unable to answer at this time (ie. confused, unrespo /Reproduction History /Reproductive History - windmill technician: /Reproductive Hx- windmill technician Hx Now No 10/10/24 12:34 Gestational Age (in weeks): EDC: Hx Hx Para Hx Section SAB No 10/10/24 12:34 Active Medications Active Medications: Current Medications Generic Name Dose Route Start Last Admin Trade Name Freq PRN Reason Stop Dose Admin Lactated Ringer's 1,000 mls @ 15 mls/hr 10/11/24 08:15 IV .Q48H RADHA PFSH Medical History Former smoker DDD (degenerative disc disease), lumbar Wears glasses ADHD PTSD (post-traumatic stress disorder) Depression Anxiety History of steroid therapy Loss of consciousness Gastric reflux Shortness of breath on exertion Cardiology follow-up encounter History of stress test Hypertension Arthrosis of left acromioclavicular joint Superior labrum ltobwsnn-tl-sbcmlldmq (SLAP) tear of left shoulder TBI (traumatic brain injury) Left shoulder pain Home Medications ?Medication ?Instructions ?Recorded ?Last Taken ?Type bupropion HCl 150 mg 24 hr tablet, 150 mg PO QDAY 11/23/23 05/14/24 History extended release clonazepam 1 mg tablet 1 mg PO TID PRN anxiety 11/23/23 05/14/24 History clonidine HCl 0.1 mg tablet 0.1 mg PO BID 11/23/23 05/14/24 History hydroxyzine HCl 50 mg tablet 50 mg PO Q6H PRN anxiety 11/23/23 05/14/24 History mirtazapine 15 mg tablet 15 mg PO QHS 11/23/23 05/14/24 History trazodone 100 mg tablet 100 mg PO QHS 11/23/23 05/14/24 History gabapentin 400 mg capsule 400 mg PO TID 03/12/24 05/14/24 History dextroamphetamine-amphetamine 10 10 mg PO BID 05/14/24 05/14/24 History mg tablet (Adderall) metoprolol succinate 25 mg 25 mg PO BID 05/14/24 05/14/24 History tablet,extended release 24 hr vonoprazan 20 mg tablet (Voquezna) 20 mg PO QDAY erosive esophagitis 05/29/24 Unknown Rx #30 tabs hydrocodone-acetaminophen 5-325mg 1 tab PO Q6H PRN PRN Pain 3 days 06/14/24 Unknown Rx 5mg-325mg #12 TABLETS Allergy/AdvReac Type Severity Reaction Status Date / Time No Known Allergies Allergy Verified 10/11/24 08:16 Surgical History History of esophagogastroduodenoscopy (EGD) Hx of colonoscopy Hx of Achilles tendon repair Hx of right knee surgery 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
[2024-10-11] MEDS: Lactated Ringers 1,000 ML 15 ML IV (08:37)
--- NOTE | 2024-10-11 08:45 | EGD_PTH ---
PATIENT: CLARENCE DUONG LOC: EN U#:[id number] AGE/SX: 49/M ROOM: RE10/11/[address]: Dr. Andre Navarro DO : 1975 BED: DIS: 10/11/2024 SPEC #: [id number] RECD: 10/11/24 11:42 STATUS: GAVIOTA SAÚL #: [id number] DAVID: 10/11/24 08:[address]: Andre Navarro DEPT: SURGICAL PATHOLOGY RECD BY: Julian Luna ENTERED: 10/11/24 14:08 SP TYPE: EGD BIOPSY WILLARD DR: Dr. Josy Patton MD Tissues: A - Esophagus, NOS Procedures: Surgery Specimen Level IV HEADER OPERATION: EGD and biopsy PRE-OP DIAGNOSIS: GERD and esophagitis TISSUE SUBMITTED: A- Distal esophagus biopsy MICROSCOPIC DIAGNOSIS A. 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 - Reactive epithelial change, negative for dysplasia. Note: The diagnosis depends on the location of the biopsy and the extent of the mucosal irregularity. If the biopsy originates from the tubular esophagus and the mucosal irregularity extends at least 1 cm above the top of the gastric folds, this represents Duran mucosa. If the biopsy originates from the gastric cardia and/or the mucosal irregularity is less than 1 cm in extent, this represents intestinal metaplasia. MICROSCOPIC DESCRIPTION Slides are reviewed. GROSS DESCRIPTION A. Received in fixative is one container labeled with the patient's name and designated Distal esophagus biopsy. The specimen consists of three irregular fragments of light reagan soft tissue, each measuring 0.3 cm. The specimen is totally submitted in one cassette. TN 10/11/2024 CPT:73736
[2024-10-11] MEDS: Midazolam 2 MG/2 ML Syringe IV (09:15)
[2024-10-11] MEDS: Lactated Ringers 500 ML IV (09:15)
[2024-10-11] MEDS: Lidocaine 1% (5 ml sdv) 5 ML Vial 10 ML IV (09:15)
--- NOTE | 2024-10-11 09:23 | PCM.POST.ANE ---
Anesthesia: Postop Eval I Current Vital Signs Temperature: 98 F Pulse Rate: 99 Blood Pressure: 129/90 Respiratory Rate: 16 Pulse Ox: 95 Oxygen Delivery Method: Room Air Assessment Airway patent: Yes Spontaneous unlabored respirations: Yes Mental status: Awake and Calm nausea: No Vomiting: No Anesthesia Complication: No Fluid Hydration Crystalloid volume administer (ml): 500 Total IV fluid infused: 500 Progress Note Anesthesia document: Postop Eval 1 completed: Yes
--- NOTE | 2024-10-11 09:29 | OP.PROVAT_ITS ---
10/11/2024 Josy Patton Md Re : Upper GI endoscopy procedure for Rohit Lafleur Dear Dr. Patton This procedure was performed on Friday, October 11, 2024. My impressions and recommendations are as follows: Impressions : - Z-line irregular, 40 cm from the incisors. Biopsied. - No gross lesions in the entire stomach. - No gross lesions in the entire examined duodenum. Recommendations : - Discharge patient to home. - Resume previous diet. - Continue present medications. - Await pathology results. My findings are described in the full procedure note, which is enclosed. If I can be of further assistance, please feel free to contact me at . Sincerely, Andre Navarro, 10/11/2024 9:29:01 AM This report has been signed electronically.
--- NOTE | 2024-10-11 09:29 | OP.EGD_ITS ---
Patient Name: Rohit Lafleur Procedure Date: 10/11/2024 9:08 AM Date of : 1975 Age: 49 Procedure: Upper GI endoscopy Indications: Heartburn, Esophageal reflux Providers: Andre Navarro DO Referring MD: Josy Patton Md Medicines: Monitored Anesthesia Care Patient Profile: This is a 49 year old male. Refer to note in patient chart for documentation of history and physical. Patient has symptoms of chronic heartburn. Complications: No immediate complications. Procedure: Pre-Anesthesia Assessment: - Prior to the procedure, a History and Physical was performed, and patient medications and allergies were reviewed. The patient is competent. The risks and benefits of the procedure and the sedation options and risks were discussed with the patient. All questions were answered and informed consent was obtained. Patient identification and proposed procedure were verified by the physician in the pre-procedure area. Mental Status Examination: alert and oriented. Airway Examination: normal oropharyngeal airway and neck mobility. Respiratory Examination: clear to auscultation. CV Examination: normal. Prophylactic Antibiotics: The patient does not require prophylactic antibiotics. Prior Anticoagulants: The patient has taken no anticoagulant or antiplatelet agents. ASA Grade Assessment: II - A patient with mild systemic disease. After reviewing the risks and benefits, the patient was deemed in satisfactory condition to undergo the procedure. The anesthesia plan was to use monitored anesthesia care (MAC). Immediately prior to administration of medications, the patient was re-assessed for adequacy to receive sedatives. The heart rate, respiratory rate, oxygen saturations, blood pressure, adequacy of pulmonary ventilation, and response to care were monitored throughout the procedure. The physical status of the patient was re-assessed after the procedure. After obtaining informed consent, the endoscope was passed under direct vision. Throughout the procedure, the patient's blood pressure, pulse, and oxygen saturations were monitored continuously. The Endoscope was introduced through the mouth, and advanced to the second part of duodenum. The upper GI endoscopy was accomplished without difficulty. The patient tolerated the procedure well. Scope In: 9:20:49 AM Scope Out: 9:23:30 AM Total Procedure Duration Time 0 hours 2 minutes 41 seconds Findings: The Z-line was irregular and was found 40 cm from the incisors. Biopsies were taken with a cold forceps for histology. Verification of patient identification for the specimen was done. Estimated blood loss was minimal. No gross lesions were noted in the entire examined stomach. No gross lesions were noted in the entire examined duodenum. Impression: - Z-line irregular, 40 cm from the incisors. Biopsied. - No gross lesions in the entire stomach. - No gross lesions in the entire examined duodenum. Recommendation: - Discharge patient to home. - Resume previous diet. - Continue present medications. - Await pathology results. Procedure Code(s): --- Professional --- 14933, Esophagogastroduodenoscopy, flexible, transoral; with biopsy, single or multiple CPT copyright 2021 [employer]. All rights reserved. The codes documented in this report are preliminary and upon combination saw operator review may be revised to meet current compliance requirements. Andre Navarro DO 10/11/2024 9:29:01 AM This report has been signed electronically. Number of Addenda: 0 Note Initiated On: 10/11/2024 9:08 AM
--- NOTE | 2024-10-11 09:34 | POSTOPAN2_ITS ---
Anesthesia Postop Eval I Sum Postop Eval Completion status Anesthesia document: Postop Eval 1 completed: Yes Anesthesia Postop Eval I Summary Anesthesia Postop Eval I Summary: Anesthesia Postop Eval I: Assessment Summary Airway patent Yes 10/11/24 09:24 [email or web address] Spontaneous unlabored Yes 10/11/24 09:24 [email or web address] respirations Mental status Awake,Calm 10/11/24 09:24 [email or web address] nausea No 10/11/24 09:24 [email or web address] Vomiting No 10/11/24 09:24 [email or web address] Anesthesia Postop Eval I: Fluid Summary Crystalloid volume administer 500 10/11/24 09:24 [email or web address] (ml) Colloids volume administered ( ml) Blood Product volume administered (ml) Total IV fluid infused 500 10/11/24 09:24 [email or web address] Anesthesia Postop Eval I: Summary Notes Anesthesia Complication No 10/11/24 09:24 [email or web address] Anesthesia Complication Comment: Post-operative progress note Anesthesia: Postop Eval II Evaluation Mental status: Awake and Calm Pain Level: 0 nausea: No Vomiting: No Complications Anesthesia Complication: No
--- NOTE | 2024-10-11 09:34 | PCM.POSTANE2 ---
Anesthesia Postop Eval I Sum Postop Eval Completion status Anesthesia document: Postop Eval 1 completed: Yes Anesthesia Postop Eval I Summary Anesthesia Postop Eval I Summary: Anesthesia Postop Eval I: Assessment Summary Airway patent Yes 10/11/24 09:24 [email or web address] [email or web address] Spontaneous unlabored Yes 10/11/24 09:24 PHARMACY [email or web address] respirations Mental status Awake,Calm 10/11/24 09:24 [email or web address] [email or web address] nausea No 10/11/24 09:24 PHARMACY [email or web address] Vomiting No 10/11/24 09:24 PHARMACY [email or web address] Anesthesia Postop Eval I: Fluid Summary Crystalloid volume administer 500 10/11/24 09:24 PHARMACY [email or web address] (ml) Colloids volume administered ( ml) Blood Product volume administered (ml) Total IV fluid infused 500 10/11/24 09:24 PHARMACY [email or web address] Anesthesia Postop Eval I: Summary Notes Anesthesia Complication No 10/11/24 09:24 [email or web address] [email or web address] Anesthesia Complication Comment: Post-operative progress note Anesthesia: Postop Eval II Evaluation Mental status: Awake and Calm Pain Level: 0 nausea: No Vomiting: No Complications Anesthesia Complication: No
--- NOTE | 2024-10-11 09:48 | POSTOPAN2_ITS ---
Anesthesia Postop Eval I Sum Postop Eval Completion status Anesthesia document: Postop Eval 1 completed: Yes Anesthesia Postop Eval I Summary Anesthesia Postop Eval I Summary: Anesthesia Postop Eval I: Assessment Summary Airway patent Yes 10/11/24 09:24 [email or web address] Spontaneous unlabored Yes 10/11/24 09:24 [email or web address] respirations Mental status Awake,Calm 10/11/24 09:34 [email or web address] nausea No 10/11/24 09:34 PLUG [email or web address] Vomiting No 10/11/24 09:34 [email or web address] Anesthesia Postop Eval I: Fluid Summary Crystalloid volume administer 500 10/11/24 09:24 PLUG [email or web address] (ml) Colloids volume administered ( ml) Blood Product volume administered (ml) Total IV fluid infused 500 10/11/24 09:24 PLUG [email or web address] Anesthesia Postop Eval I: Summary Notes Anesthesia Complication No 10/11/24 09:34 PLUG [email or web address] Anesthesia Complication Comment: Post-operative progress note Anesthesia: Postop Eval II Evaluation Mental status: Awake and Calm Pain Level: 0 nausea: No Vomiting: No Complications Anesthesia Complication: No
--- NOTE | 2024-10-11 09:48 | PCM.POSTANE2 ---
Anesthesia Postop Eval I Sum Postop Eval Completion status Anesthesia document: Postop Eval 1 completed: Yes Anesthesia Postop Eval I Summary Anesthesia Postop Eval I Summary: Anesthesia Postop Eval I: Assessment Summary Airway patent Yes 10/11/24 09:24 PROP [email or web address] Spontaneous unlabored Yes 10/11/24 09:24 PROP [email or web address] respirations Mental status Awake,Calm 10/11/24 09:34 PROP [email or web address] nausea No 10/11/24 09:34 PROP [email or web address] Vomiting No 10/11/24 09:34 PROP [email or web address] Anesthesia Postop Eval I: Fluid Summary Crystalloid volume administer 500 10/11/24 09:24 PROP [email or web address] (ml) Colloids volume administered ( ml) Blood Product volume administered (ml) Total IV fluid infused 500 10/11/24 09:24 PROP [email or web address] Anesthesia Postop Eval I: Summary Notes Anesthesia Complication No 10/11/24 09:34 PROP [email or web address] Anesthesia Complication Comment: Post-operative progress note Anesthesia: Postop Eval II Evaluation Mental status: Awake and Calm Pain Level: 0 nausea: No Vomiting: No Complications Anesthesia Complication: No
== END 2024-10-11 10:22 | disposition home or self-care (01) ==
LOC: EN 08:01 → AC 08:02
PROVIDERS: PCP Internal Medicine; Referring Provider Internal Medicine; Visit Provider Internal Medicine Gastroenterology
PROC: 0DJ08ZZ Inspection of Upper Intestinal Tract, Via Natural or Artificial Opening Endoscopic (ICD-10-PCS; CPT 43235; principal; 2024-10-11 08:40)
DX: K21.9 Gastro-esophageal reflux disease without esophagitis (principal); I10 Essential (primary) hypertension; F90.9 Attention-deficit hyperactivity disorder, unspecified type; F32.A Depression, unspecified; F41.9 Anxiety disorder, unspecified; F43.10 Post-traumatic stress disorder, unspecified; Z87.19 Personal history of other diseases of the digestive system; Z87.820 Personal history of traumatic brain injury; Z79.899 Other long term (current) drug therapy; Z87.891 Personal history of nicotine dependence
CPT/HCPCS: 43239; 88305